=== PATIENT | female | born 1960 | race Hispanic/Latino ===

== ENCOUNTER 2019-04-02 17:51 | Emergency (ER) | payer BC ==
[2019-04-02] MEDS ORDERED: Acetaminophen 500 MG TAB ONE (18:41)
[2019-04-02] MEDS ORDERED: Ibuprofen 200 MG TAB ONE (18:41)
--- NOTE | 2019-04-02 20:03 | RAD ---
XR Chest 1 View Portable History: [Chest pain] Comparison: None. Findings: Lungs are clear. No pneumothorax or effusion. Cardiac silhouette and mediastinal contours a re within normal limits. No acute osseous abnormality. Impression: No acute intrathoracic abnormality.
[2019-04-02 20:04] LABS: Mean Corpuscular Volume 92.9 fL (78.0-98.0)
[2019-04-02 20:17] LABS: ALT (SGPT) 21 U/L (8-55); AST (SGOT) 19 U/L (5-34); Albumin 4.3 g/dL (3.5-5.0); Alkaline Phosphatase 111 U/L (40-150); Anion Gap 14 mmol/L (10-20); BUN (Urea Nitrogen) 10 mg/dL (9.8-20.1); Bilirubin, Total 0.5 mg/dL (0.2-1.2); Calc. Creatinine Clearance 0 mL/min (70-130); Calcium 9.2 mg/dL (7.8-10.44); Carbon Dioxide 23 mmol/L (22-29); Chloride 103 mmol/L (98-107); Estimated GFR-MDRD 78; Glucose 123 mg/dL (70-105); Potassium 3.7 mmol/L (3.5-5.1); Protein, Total 7.3 g/dL (6.0-8.3); Sodium 136 mmol/L (136-145)
[2019-04-02 20:19] LABS: Band 17 % (5-11); Hemoglobin 14.3 g/dL (12.0-16.0); Lymphocytes 4 % (21-51); MDiff Complete? YES; Mean Corpuscular HGB CONC 33.5 g/dL (32.0-36.0); Mean Corpuscular Hemoglobin 31.1 pg (27.0-31.0); Mean Platelet Volume 7.3 fL (7.4-10.4); Monocytes 3 % (0-10); Neutrophil 76 % (42-75); Platelet Count 325 thou/uL (130-400); RBC Distribution Width 11.4 % (11.5-14.5); Red Blood Cell (RBC) Count 4.61 mill/uL (4.20-5.40); White Blood Cell (WBC) Count 19.4 thou/uL (4.8-10.8)
[2019-04-02] MEDS ORDERED: Dexamethasone 10 MG/ML VIAL ONE (21:10)
[2019-04-02] MEDS ORDERED: cefTRIAXone\\ROCEPHIN 1 GM VIAL ONE (21:10)
== END 2019-04-02 21:51 | disposition home or self-care (01) ==
LOC: ERS 17:51
DX: J02.0 Streptococcal pharyngitis (principal); R07.9 Chest pain, unspecified; F41.9 Anxiety disorder, unspecified; I10 Essential (primary) hypertension; Z79.899 Other long term (current) drug therapy
CPT/HCPCS: 36415; 71045; 80053; 83605; 84484; 85025; 87040; 87430; 93005; 96361; 96374; J0696; J1100

== ENCOUNTER 2020-02-28 11:25 | Emergency (ER) | payer BC, SELFPAY ==
[2020-02-28] MEDS ORDERED: Nitroglycerin 0.4 MG TAB 1 EACH ONE (11:50)
[2020-02-28] MEDS ORDERED: Aspirin Chewable 81 MG TAB ONE (11:50)
[2020-02-28 11:59] LABS: #Basophils 0.1 thou/uL (0.0-0.2); #Lymphocytes 1.6 thou/uL (1.20-3.40); #Monocytes 0.2 thou/uL (0.11-0.59); #Neutrophils 2.7 thou/uL (1.40-6.50); %Basophils 1.6 % (0.0-1.0); %Eosinophils 1.1 % (0.0-10.0); %Lymphocytes 34.5 % (21.0-51.0); %Monocytes 5.1 % (0.0-10.0); %Neutrophils 57.7 % (42.0-75.0); Hemoglobin 15.3 g/dL (12.0-16.0); Mean Corpuscular Hemoglobin 30.9 pg (27.0-31.0); Mean Corpuscular Volume 93.5 fL (78.0-98.0); Mean Platelet Volume 7.4 fL (7.4-10.4); Platelet Count 317 thou/uL (130-400); RBC Distribution Width 11.2 % (11.5-14.5); Red Blood Cell (RBC) Count 4.96 mill/uL (4.20-5.40); White Blood Cell (WBC) Count 4.6 thou/uL (4.8-10.8)
[2020-02-28 12:11] LABS: ALT (SGPT) 18 U/L (8-55); AST (SGOT) 15 U/L (5-34); Albumin 4.7 g/dL (3.5-5.0); Alkaline Phosphatase 103 U/L (40-110); Anion Gap 12 mmol/L (10-20); BUN (Urea Nitrogen) 12 mg/dL (9.8-20.1); Bilirubin, Total 0.5 mg/dL (0.2-1.2); CK (CPK) 68 U/L (29-168); Calc. Creatinine Clearance 0 mL/min (70-130); Calcium 9.5 mg/dL (7.8-10.44); Carbon Dioxide 29 mmol/L (22-29); Chloride 103 mmol/L (98-107); Estimated GFR-MDRD 73; Globulin 3.2 g/dL (2.4-3.5); Glucose 136 mg/dL (70-105); Potassium 3.9 mmol/L (3.5-5.1); Protein, Total 7.9 g/dL (6.0-8.3); Sodium 140 mmol/L (136-145)
--- NOTE | 2020-02-28 12:16 | RAD ---
Chest one view HISTORY: Chest pain. COMPARISON: 04/02/2019. FINDINGS: Cardiac silhouette and pulmonary vasculature are unremarkable. Mediastinum is midline. No confluent airspace consolidation or evidence of pneumothorax. Breast implants partially visualized . groundwater monitoring technician leads overlie the chest. IMPRESSION : No active cardiopulmonary abnormalities are demonstrated.
--- NOTE | 2020-03-02 14:08 | EKG ---
Test Reason : Blood Pressure : / mmHG Vent. Rate : 070 BPM Atrial Rate : 070 BPM P-R Int : 156 ms QRS Dur : 096 ms QT Int : 418 ms P-R-T Axes : 033 013 036 degrees QTc Int : 451 ms Normal sinus rhythm Normal ECG Confirmed by CHIRAG RODRÍGUEZ ([id number]), research editor KRISTYN BROWNLEE ([id number] on 03/02/2020 2:08:11 PM Referred By: Confirmed By:CHIRAG Foss
== END 2020-02-28 13:20 | disposition home or self-care (01) ==
LOC: ERS 11:25
DX: R07.9 Chest pain, unspecified (principal); I10 Essential (primary) hypertension; F41.9 Anxiety disorder, unspecified; Z79.899 Other long term (current) drug therapy
CPT/HCPCS: 71045; 80053; 82550; 84484; 85025; 93005

== ENCOUNTER 2020-06-22 09:50 | Outpatient (CLI) | payer BC, SELFPAY ==
--- NOTE | 2020-06-22 11:38 | RAD ---
EXAM: 3 views of the left shoulder HISTORY: Shoulder pain COMPARISON: None FINDINGS: There is no evidence of acute fracture or dislocation. No degenerative changes are present. No soft tissue swelling is seen. The visualized thorax is unremarkable. IMPRESSION: No evidence of acute osseous abnormality.
--- NOTE | 2020-06-22 11:38 | RAD ---
XR Chest Pa Lat STANDARD History: Pain taking a deep breath Comparison: Radiograph February 2020 Findings: Lungs are clear. No pneumothorax. No effusion. Cardiac silhouette and mediastinal contours are within normal limits. No acute osseous abnormality. Impression: No acute intrathoracic abnormality.
--- NOTE | 2020-06-22 11:39 | RAD ---
XR Cerv Sp Ap Lat STANDARD History: Cervicalgia Comparison: None. Findings: Moderate degenerative disc space height loss at C5/C6 and moderate to severe at C6/C7. Disc osteophyte complexes at both these levels as well as bridging anterior osteophyte. No acute fracture. Odontoid view is normal. Visualized upper ribs are intact. Impression: Moderate-advanced lower cervical spondylosis.
--- NOTE | 2020-06-22 11:40 | RAD ---
XR Thoracic Spine 3 V STANDARD History: Cervicalgia and back pain Comparison: None Findings: No acute fracture or malalignment. Low-grade S-shaped scoliosis. Very mild midthoracic spin e degenerative disc space height loss and small osteophytes. Impression: No acute osseous abnormality. Low-grade midthoracic spine spondylosis.
--- NOTE | 2020-06-22 12:51 | MMO ---
Bilateral MAMMO Bilat Screen [facility]. CLINICAL HISTORY: Patient is 60 years old and is seen for screening. The patient has no family history of breast cancer. The patient has no personal history of cancer. The patient has a history of Implants. VIEWS: The views performed were: bilateral craniocaudal with tomosynthesis and bilateral mediolateral oblique with tomosynthesis. This study has been interpreted with the assistance of computer-aided detection. MAMMOGRAM FINDINGS: There are scattered fibroglandular densities. There are no suspicious masses, suspicious calcifications, or new areas of architectural distortion. Bilateral implants are normal. IMPRESSION: THERE IS NO MAMMOGRAPHIC EVIDENCE OF MALIGNANCY. A ROUTINE FOLLOW-UP MAMMOGRAM IN 1 YEAR IS RECOMMENDED. THE RESULTS OF THIS EXAM WERE SENT TO THE PATIENT. ACR BI-RADS Category 1 - Negative MAMMOGRAPHY NOTE: 1. A negative mammogram report should not delay a biopsy if a dominant of clinically suspicious mass is present. 2. Approximately 10% to 15% of breast cancers are not detected by mammography. 3. Adenosis and dense breasts may obscure an underlying neoplasm. Reported by: MATHEW COTTON MD Electonically Signed: [id number]
--- NOTE | 2020-06-23 07:43 | BD ---
EXAM: DEXA bone density examination HISTORY: 60-year-old postmenopausal female for screening COMPARISON: None FINDINGS: L1--bone mineral density 0.865 g/sq cm; T score -1.1 L2--bone mineral density 0.897 g/sq cm; T score -1.2 L3--bone mineral density 0.887 g/sq cm; T score -1.8 L4--bone mineral density 0.895 g/sq cm; T score -1.5 Total L1-L4--bone mineral density 0.886 g/sq cm; T score -1.5 Left femoral neck--bone mineral density0.805; T score -0.4 Total proximal left femur--bone mineral density 1.054; T score 0.9 IMPRESSION: Osteopenia. This patient has a 10 year WHO fracture risk of a major osteoporotic fracture of 4.2% and of a hip fracture of 0.2%.
== END 2020-06-22 09:51 | disposition home or self-care (01) ==
LOC: BICMAMMO 09:50
PROVIDERS: ATTEND Family Medicine
DX: Z12.31 Encounter for screening mammogram for malignant neoplasm of breast (principal); M85.859 Other specified disorders of bone density and structure, unspecified thigh; M75.52 Bursitis of left shoulder; M54.2 Cervicalgia; R91.8 Other nonspecific abnormal finding of lung field; M85.88 Other specified disorders of bone density and structure, other site; M47.812 Spondylosis without myelopathy or radiculopathy, cervical region; M47.814 Spondylosis without myelopathy or radiculopathy, thoracic region; Z98.82 Breast implant status
CPT/HCPCS: 71046; 72040; 72072; 77063; 77067; 77080

== ENCOUNTER 2023-09-24 17:21 | Emergency (ER) | payer OTHER, SELFPAY ==
[2023-09-24] MEDS ORDERED: HYDROcodone/Acetaminophen 10/325 mg Tablet ONE (17:37)
== END 2023-09-24 18:40 | disposition home or self-care (01) ==
LOC: ERS 17:21
DX: S16.1XXA Strain of muscle, fascia and tendon at neck level, initial encounter (principal); V89.2XXA Person injured in unspecified motor-vehicle accident, traffic, initial encounter
CPT/HCPCS: 70450; 71045; 72125